=== PATIENT | female | born 1970 | race Hispanic/Latino ===

== ENCOUNTER 2020-12-26 17:17 | Emergency (ER) | payer OTHER ==
[~2020-12-26] VITALS: Ht 162.6 cm; Wt 63.5 kg
[2020-12-26] MEDS ORDERED: KETOROLAC TROMETHAMINE 30 MG/ML VIAL IV STA (17:43)
[2020-12-26] MEDS ORDERED: IBUPROFEN600 MG PO (17:54)
[2020-12-26] MEDS ORDERED: CYCLOBENZAPRINE5 MG PO (17:54)
[2020-12-26] MEDS ORDERED: LIDOCAINE1 EAC1 TD (17:54)
[2020-12-26] MEDS ORDERED: KETOROLAC TROMETHAMINE 30 MG/ML VIAL ONE (18:23)
== END 2020-12-26 19:25 | disposition home or self-care (01) ==
LOC: FSED 17:28
DX: S39.012A Strain of muscle, fascia and tendon of lower back, initial encounter (principal); X50.0XXA Overexertion from strenuous movement or load, initial encounter; Y93.9 Activity, unspecified
CPT/HCPCS: 72100; 99283; J1885

== ENCOUNTER 2021-01-31 10:26 | Emergency (ER) | payer OTHER ==
[~2021-01-31] VITALS: Ht 162.6 cm; Wt 63.5 kg
[~2021-01-31 10:26] MED LIST: CYCLOBENZAPRINE5 MG PO; IBUPROFEN600 MG PO; LIDOCAINE1 EAC1 TD
[2021-01-31] MEDS ORDERED: KETOROLAC TROMETHAMINE 30 MG/ML VIAL IV STA (10:56)
[2021-01-31] MEDS ORDERED: SODIUM CHLORIDE 0.9% 1000ML 1,000 ML IV STA (10:56)
[2021-01-31] MEDS ORDERED: ONDANSETRON HCL INJ 2MG/ML 2ML 2 MG/ML VIAL IV STA (10:56)
[2021-01-31 11:50] LABS: CLARITY,URINE CLEAR (CLEAR); COLOR,URINE YELLOW (YELLOW); KETONES,URINE NEGATIVE (NEGATIVE); LEUKOCYTE ESTERASE ,URINE NEGATIVE (NEGATIVE); NITRITE,URINE NEGATIVE (NEGATIVE); PROTEIN,URINE DIPSTICK NEGATIVE (NEGATIVE); URINE UROBILINOGEN 0.2 mg/dL (0.2 - 1)
[2021-01-31 12:23] LABS: BACTERIA,URINE FEW /HPF; WBC,URINE (MAN) 0-5 /HPF (0-5)
== END 2021-01-31 18:45 | disposition home or self-care (01) ==
LOC: ER 10:45
DX: M54.32 Sciatica, left side (principal); N39.9 Disorder of urinary system, unspecified
CPT/HCPCS: 81001; 87086; 99283